=== PATIENT | male | born 1945 | race Asian ===

== ENCOUNTER 2020-08-10 08:11 | Outpatient (CLI) | payer MEDICARE, OTHER | END 2020-08-10 08:12 | disposition home or self-care (01) | LOC: EMS 08:11 | PROVIDERS: ATTEND Surgery | DX: R06.02 Shortness of breath (principal); R42 Dizziness and giddiness; R53.1 Weakness ==

== ENCOUNTER 2020-08-10 16:44 | Outpatient (CLI) | payer MEDICARE, OTHER | END 2020-08-10 16:45 | disposition critical access hospital (66) | LOC: EMS 16:44 | PROVIDERS: ATTEND Surgery | DX: R06.02 Shortness of breath (principal); R53.1 Weakness | CPT/HCPCS: A0425; A0429 ==

== ENCOUNTER 2020-08-10 17:06 | Inpatient (IN) | payer MEDICARE, OTHER ==
[2020-08-10 17:57] LABS: BASOPHILS % (AUTO) 0.3 %; EOSINOPHILS # (AUTO) 0.1 10^3/uL (0.0-0.7); EOSINOPHILS % (AUTO) 0.4 %; HGB - HEMOGLOBIN 12.8 g/dL (14.0-18.0); LYMPHOCYTES # (AUTO) 0.7 10^3/uL (1.5-3.5); LYMPHOCYTES % (AUTO) 6.3 %; MEAN CORPUSCULAR HEMOGLOBIN 28.8 pg (27.0-31.0); MEAN CORPUSCULAR HGB CONC 32.3 g/dL (32.0-36.0); MEAN CORPUSCULAR VOLUME 89.2 fL (80.0-94.0); MEAN PLATELET VOLUME 10.9 fL (7.4-11.4); MONOCYTES % (AUTO) 8.4 %; NEUTROPHILS # (AUTO) 9.6 10^3/uL (1.5-6.6); NEUTROPHILS % (AUTO) 84.1 %; PLT - PLATELET COUNT 188 10^3/uL (130-450); RED BLOOD COUNT 4.44 10^6/uL (4.70-6.10); RED CELL DISTRIBUTION WIDTH 13.1 % (12.0-15.0); WHITE BLOOD COUNT 11.5 x10^3/uL (4.8-10.8)
--- NOTE | 2020-08-10 18:03 | XRAY Report ---
PROCEDURE: Chest 1 View X-Ray INDICATIONS: chest pain TECHNIQUE: One view of the chest was acquired. COMPARISON: None. FINDINGS: Surgical changes and devices: None. Lungs and pleura: No pleural effusions or pneumothorax. Extensive hazy opacities scattered throughou t bilateral lung damon with interstitial prominence is seen. Mediastinum: Mediastinal contours appear normal. Heart size is enlarged. Bones and chest wall: No suspicious bony lesions. Overlying soft tissues appear unremarkable. IMPRESSION: Extensive interstitial prominence and ill-defined extensive bilateral airspace opacities suggestive o f pulmonary edema and superimposed interstitial infiltrates. No pleural effusion or pneumothorax. Reviewed by: Rom Man MD on 08/10/2020 5:01 PM [facility] Approved by: Rom Man MD on 08/10/2020 5:01 PM [facility] Station ID: [id number]
[2020-08-10 18:15] LABS: ALBUMIN 4.2 g/dL (3.2-5.5); ALBUMIN/GLOBULIN RATIO 1.2 (1.0-2.2); BILIRUBIN,TOTAL 0.9 mg/dL (0.2-1.0); CALCIUM 9.2 mg/dL (8.5-10.3); CREATININE 1.1 mg/dL (0.6-1.2); TOTAL PROTEIN 7.8 g/dL (6.7-8.2)
[2020-08-10 18:27] LABS: INR 1.2 (0.8-1.2); PT - PROTHROMBIN TIME 13.7 secs (9.9-12.6)
--- NOTE | 2020-08-10 18:40 | ED Physician Documentation ---
History of Present Illness - Stated complaint Stated Complaint: SOA - Chief complaint Chief Complaint: Resp - History obtained from History obtained from: Patient - Additonal information Additional information: Patient comes emergency department complaining of shortness of breath that has been getting increasingly worse over the approximately month. Patient has a history of chronic pulmonary fibrosis secondary to his rheumatoid arthritis, and states that he was just diagnosed with the pulmonary fibrosis about a year and a half ago. He states his oxygen baseline was initially set at 2 L per nasal cannula, but that he has been needing increasingly more, especially after exertion. Patient denies any fevers or chills. No productive cough. No chest pain. The patient does not have any cardiac issues that he knows of. He states he is mainly here because he called his oxygen provider, who stated that he could not be given a higher level of oxygen without a prescription or order. Patient was supposed to have an appointment with his hogshead packer tomorrow, but states that he was not feeling as though he would be well enough to make it, so he canceled the appointment. The patient states that he has been using 5 L when he uses his concentrator, which is the highest his concentrator will go. He states that he turns his oxygen tanks up to 6 L if he needs more. He states he does have enough oxygen at home to get through part of the night, and does have an nurse in his neighborhood who works for the oxygen company and has extra bottles in her possession which she can bring him. He states that he needs a prescription for the higher level of oxygen, however. No other complaints at this time. No lower extremity edema or calf pain. Review of Systems Ten Systems: 10 systems reviewed and negative Constitutional: reports: Reviewed and negative Eyes: reports: Reviewed and negative Ears: reports: Reviewed and negative Nose: reports: Reviewed and negative Throat: reports: Reviewed and negative Cardiac: reports: Reviewed and negative Respiratory: reports: Dyspnea GI: reports: Reviewed and negative : reports: Reviewed and negative Skin: reports: Reviewed and negative Musculoskeletal: reports: Reviewed and negative Neurologic: reports: Reviewed and negative Psychiatric: reports: Reviewed and negative Endocrine: reports: Reviewed and negative Immunocompromised: reports: Reviewed and negative PD PAST MEDICAL HISTORY - Present Medications Home Medications: Ambulatory Orders Medication Instructions Recorded Confirmed Cellcept 08/10/20 Cholecalciferol [Vitamin D3] 1,000 unit DAILY 08/10/20 08/10/20 Guaifenesin/Dextromethorphan 1 each PO BID 08/10/20 08/10/20 [Guaifenesin-Dm ER 1,200-60 mg] Multivitamin 1 tab DAILY 08/10/20 08/10/20 Omeprazole Magnesium 20 mg PO TID 08/10/20 08/10/20 Sulfamethox/Trimeth 800/160 1 tab TID 08/10/20 08/10/20 [Bactrim Ds] - Allergies Allergies/Adverse Reactions: Allergies Allergy/AdvReac Type Severity Reaction Status Date / Time No Known Drug Allergies Allergy Verified 08/10/20 17:40 PD ED PE NORMAL - Vitals Vital signs reviewed: Yes - General General: Alert and oriented X 3, No acute distress - HEENT HEENT: Atraumatic, PERRL, EOMI, Moist mucous membranes - Neck Neck: Supple, no meningeal sign - Cardiac Cardiac: RRR, No murmur - Respiratory Respiratory: Clear bilaterally, Other (Patient has mildly labored respirations, but is able to converse with minimal difficulty. He is noted to have include creased labored respirations with minor exertion, such as sitting up in bed.) - Abdomen Abdomen: Soft, Non tender, Non distended - Derm Derm: Normal color, Warm and dry, No rash - Extremities Extremities: No deformity, No edema, No calf tenderness / cord - Neuro Neuro: Alert and oriented X 3, Other (Sling normal) - Psych Psych: Normal mood, Normal affect Results - Vitals Vitals: Vital Signs - 24 hr 08/10/20 17:08 Temperature 36.5 C Heart Rate 85 Respiratory 26 H Rate Blood Pressure 126/71 O2 Saturation 88 L Oxygen O2 Source Nasal cannula Oxygen Flow Rate 5 - EKG (time done) 1755 Rate: Rate (enter#) (84) Rhythm: NSR, LAE [place]: Normal Intervals: Normal TX QRS: Normal Ischemia: ST elevation c/w repol Compare to prior EKG: Old EKG unavailable Computer interpretation: Agree with computer - Labs Labs: Laboratory Tests 08/10/20 08/10/20 08/10/20 17:52 17:52 17:52 WBC 11.5 H RBC 4.44 L Hgb 12.8 L Hct 39.6 L MCV 89.2 MCH 28.8 MCHC 32.3 RDW 13.1 Plt Count 188 MPV 10.9 Neut # (Auto) 9.6 H Lymph # (Auto) 0.7 L [place] # (Auto) 1.0 Eos # (Auto) 0.1 Baso # (Auto) 0.0 Absolute Nucleated RBC 0.00 Nucleated RBC % 0.0 PT 13.7 H INR 1.2 Sodium 140 Potassium 4.2 Chloride 103 Carbon Dioxide 27 Anion Gap 10.0 BUN 13 Creatinine 1.1 Estimated GFR (MDRD) 66 L Glucose 116 H Calcium 9.2 Total Bilirubin 0.9 AST 27 ALT 17 Alkaline Phosphatase 75 Troponin I High Sens B-Natriuretic Peptide Total Protein 7.8 Albumin 4.2 Globulin 3.6 Albumin/Globulin Ratio 1.2 Lipase 19 L 08/10/20 08/10/20 17:52 17:52 WBC RBC Hgb Hct MCV MCH MCHC RDW Plt Count MPV Neut # (Auto) Lymph # (Auto) [place] # (Auto) Eos # (Auto) Baso # (Auto) Absolute Nucleated RBC Nucleated RBC % PT INR Sodium Potassium Chloride Carbon Dioxide Anion Gap BUN Creatinine Estimated GFR (MDRD) Glucose Calcium Total Bilirubin AST ALT Alkaline Phosphatase Troponin I High Sens 28.8 H* B-Natriuretic Peptide 219 H Total Protein Albumin Globulin Albumin/Globulin Ratio Lipase PD MEDICAL DECISION MAKING - ED course Complexity details: reviewed results, re-evaluated patient, considered differential, d/w patient ED course: The patient was evaluated in the emergency department with chest x-ray, EKG, and labs. The chest x-ray was read by the radiologist as showing pulmonary edema, though there is no comparison for this in our system. The patient did not have cardiomegaly and I suspected the findings were most likely and more likely due to his pulmonary fibrosis. The patient did not have any lower extremity edema, but clear lungs on exam. I did add a BNP to further evaluate this possibility, however. In the meantime, I asked the respiratory therapist to do a desaturation study on the patient. I have explained to the patient that changing a chronic oxygen order is not generally something we do in the department; however, this seems to have been a gradual development for the patient as far as needing more oxygen, and he does not have any other acute symptoms or findings. The patient overall, other than his breathing, actually appears fairly well. The patient's initial troponin was 28.8. His BNP was just over 200. The patient has been signed out to Dr. Pike, pending repeat troponin and final disposition.
--- NOTE | 2020-08-10 20:24 | ED Physician Documentation ---
ED Addendum - Addendum Addendum: 08/10/20 20:23 74 y/o male 08/10/20 20:42 74-year-old male with a history of rheumatoid related pulmonary fibrosis has a progressive lung disease and is oxygen dependent and has had episodic desaturations that are difficult to recover from. He has had increase his baseline oxygen sequentially since the middle of June. In June he had an episode of desaturation the took him all day to recover from and he had some episode of hypoxic encephalopathy. He was able to adjust the oxygen upward to improve his saturations. He has an oxygen concentrator at home and will deliver up to 5 L and he has oxygen bottles as well that may last several hours. This morning he went to go to the bathroom on arrival back into his bed he was not able to get his saturations up he had a near syncopal episode and he works from 9:00 in the morning till 4:00 in the afternoon attempting to get his oxygen saturations up. He eventually called the oxygen company who told him that he would need a new prescription for his oxygen to get more than the 5 L on the concentrator and he was told to come to the emergency department for evaluation and treatment. The patient himself states that he has not had a change in his breathing other than progressive worsening. Here in the emergency department today he is saturating in the low 90s on 5 L nasal cannula excessive talking or moving will cause desaturation and he will take some time to recover. We did do a desaturation evaluation with respiratory therapy and the patient failed miserably. We will not be able to get an oxygen concentrator to the patient's house tonight that we will be able to deliver the amount of oxygen the patient will require.I have asked the hospitalist to put the patient into the hospital this evening until we are able to establish that he has the concentrator at his home functioning. 08/10/20 20:46
[2020-08-10] MEDS ORDERED: MORPHINE 2 MG/ML CARPUJECT IVP PRN (20:56)
[2020-08-10] MEDS ORDERED: SODIUM CHLORIDE FLUSH 0.9% 10 ML SYRINGE IVP PRN (20:56)
[2020-08-10] MEDS ORDERED: ACETAMINOPHEN 325 MG TABLET PO PRN (20:56)
--- NOTE | 2020-08-10 20:59 | HISTORY & PHYSICAL EXAMINATION ---
Chief Complaint - Chief Complaint Chief Complaint: Hypoxia History of Present Illness - Admitted From Admitted From:: Home - History Obtained From Records Reviewed: Yes History obtained from: Patient, ER Physician, EMR - History of Present Illness HPI Comment/Other: This is a very pleasant 74-year-old male with a past medical history significant for pulmonary fibrosis believed to be secondary to rheumatoid arthritis who is on 4-5 L of oxygen at baseline presents today due to ongoing hypoxia at home. He states that he has had progressive dyspnea with minimal exertion over the past 4 weeks. He has a chronic productive cough of brown sputum which is unchanged. He states that with minimal exertion he will desaturate into the 70s and it will normally take him about 15 minutes to return to 88 to 92%. He states that today he desaturated into the high 50s and despite increasing his oxygen to 7 8 L, he remained quite hypoxic over next few hours. He states he was finally able to decrease his oxygen to 6 L of oxygen to maintain a saturation above 88%. He states his concentrator only goes up to 5 L of oxygen and when he contacted the company that provides his oxygen, he was told that he will need a new prescription and so he came to the emergency department. He reports no fevers or chills at home. Denies any lower extremity edema. He states he does not feel short of breath at rest but he does with minimal exertion. He states his he has felt for the past 4 weeks. He understands that there is progressive decline associated pulmonary fibrosis. He is actually scheduled to see his pack worker, Dr. Renetta Weber tomorrow at [facility]. He denies ever being hospitalized due to pulmonary fibrosis. He does take Bactrim 3 times a week as he is on CellCept for the rheumatoid arthritis. He is also on omeprazole. He reports no chest pressure while he does have some pain when he has a coughing fit and dry heaves. In the emergency department, he was found to be afebrile with temperature of 36.5 C. His heart rate was in the 80s. Blood pressure is 150s over 71. He was tachypneic with a respiratory in the mid 20s to 30. He was initially saturating mid 90s on 5 L of oxygen via nasal cannula but he desaturated and re quired to be placed on a nonrebreather at 15 L a minute. His oxygen saturation did improve to 100% with this. Chest x-ray was obtained which was concerning for either pulmonary edema or bilateral infiltrates. Given his desaturation, medicine was consulted for admission. I did discuss goals of care with the patient and he would like to be a DNR. He has made it very clear that he does not want mechanical ventilation no matter what. He states that if he were to decline from a respiratory standpoint, he would option for comfort measures. History - Past Medical History Respiratory: reports: Other (Pulmonary fibrosis) Musculoskeletal: reports: Rheumatoid arthritis - Past Surgical History General: reports: Colonoscopy - Family & Social History Family History Comment/Other: Reports his father had pernicious anemia. His y ounger brother from complications due to type 2 diabetes mellitus. Living arrangement: At home Living Situation: With spouse/s.o. 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 He is to [employer]. He has never smoked. Meds/Allgy - Home Medications Home Medications: Ambulatory Orders Medication Instructions Recorded Confirmed Cellcept 08/10/20 Cholecalciferol [Vitamin D3] 1,000 unit DAILY 08/10/20 08/10/20 Guaifenesin/Dextromethorphan 1 each PO BID 08/10/20 08/10/20 [Guaifenesin-Dm ER 1,200-60 mg] Multivitamin 1 tab DAILY 08/10/20 08/10/20 Omeprazole Magnesium 20 mg PO TID 08/10/20 08/10/20 Sulfamethox/Trimeth 800/160 1 tab TID 08/10/20 08/10/20 [Bactrim Ds] - Allergies Allergies/Adverse Reactions: Allergies Allergy/AdvReac Type Severity Reaction Status Date / Time No Known Drug Allergies Allergy Verified 08/10/20 17:40 Review of Systems - Constitutional Constitutional: denies: Fatigue, Fever, Chills - Ears, Nose & Throat Ears, Nose & Throat: denies: Nasal discharge, Nasal congestion, Sore throat - Cardiovascular Cariovascular: reports: Exertional dyspnea, Decr. exercise tolerance. denies: Chest pain, Edema - Respiratory Respiratory: reports: Cough, Sputum production, SOB at rest, SOB with exertion - Gastrointestinal Gastrointestinal: denies: Abdominal pain - All Other Systems All Other Systems: reports: Other (Review of systems is limited due to his respiratory distress.) Prior Level of Functionality: He is independent with his ADLs. His physical abilities are limited due to dyspnea with exertion secondary to his pulmonary fibrosis. Exam - Vital Signs Reviewed Vital Signs: Yes Vital Signs: Vital Signs x48h Temp Pulse Resp BP Pulse Ox 08/10/20 20:47 28 H 100 08/10/20 20:22 91 19 115/69 86 L 08/10/20 20:15 35 H 83 L 08/10/20 19:47 74 22 113/64 95 08/10/20 19:10 70 30 H 109/65 97 08/10/20 18:00 73 26 H 112/64 94 08/10/20 17:08 36.5 C 85 26 H 126/71 88 L - Physical Exam General Appearance: positive: Alert, Moderate distress Eyes Bilateral: positive: Normal inspection, Conjunctivae nml, No scleral icterus ENT: positive: ENT inspection nml Neck: positive: Nml inspection Respiratory: positive: Other (He does appear to be distressed whenever he is speaking. He speaks in 2-3 word sentences at a time. He appears much more comfortable once he is not speaking. He has bilateral crackles throughout lung damon.). negative: No respiratory distress, Wheezes Cardiovascular: positive: No murmur, Tachycardia. negative: Bradycardia, Systolic murmur Abdomen: positive: Non-tender, No distention. negative: Tenderness Skin: positive: Warm, Dry Extremities: positive: No pedal edema Neurologic/Psychiatric: positive: Oriented x3. negative: Disoriented to person, Disoriented to place, Disoriented to time Conclusion/Plan - Problem List (1) Acute on chronic respiratory failure with hypoxia Conclusion/Plan: He is normally on 4 to 5 L of oxygen at baseline due to his pulmonary fibrosis but he is now requiring up to 10 L of oxygen to maintain an oxygen saturation above 88%. His x-ray does reveal bilateral infiltrates concerning for edema or possible pneumonia. There is no prior imaging to compare to so it is unclear if this is just related to his pulmonary fibrosis or not. Given his worsening hypoxia, we will treat him empirically with IV azithromycin and ceftriaxone for possible community-acquired pneumonia. We will also give him a one-time dose of Solu-Medrol 125 mg IV in case there may be a component of exacerbation of his pulmonary fibrosis. We will place him in the intensive care unit for close monitoring given his significant hypoxia and respiratory distress at times. Continue supplemental oxygen for goal saturation greater than 88%. I have requested records from [facility] and we will consider obtaining further imaging such as a CT of the chest. Will discuss with pack worker tomorrow regarding the need for further steroids and further treatment. The patient has made it very clear he would not want mechanical ventilation even if he were to deteriorate. (2) Pulmonary interstitial fibrosis Conclusion/Plan: IIt is unclear at this time if this episode of hypoxia is due to a possible infiltrate or heart failure or even exacerbation of his pulmonary fibrosis. This may just be chronic progressive hypoxia due to his underlying disease. His chest x-ray is quite abnormal although we do not have prior imaging to compare to. At this time, we will treat him medically as mentioned above. We will request his records from [facility] so we can compare his current chest x-ray to prior imaging as if there is a significant difference, he may need further work-up including a CT of the chest. If imaging is unchanged, suspect is likely just progression of his disease and that he will require an increased amount of oxygen. (3) Rheumatoid arthritis Conclusion/Plan: This is reportedly the cause of his pulmonary fibrosis. We will hold his home CellCept for the time being. - Lab Results Lab results reviewed: Yes Fish Bones: 08/10/20 17:52 08/10/20 17:52 - Diagnostic Imaging Results Diagnostic Imaging Results: positive: Final report reviewed - EKG Results EKG Interpreted Independently: Yes EKG Comparison: No prior EKG EKG Findings: Sinus rhythm with T wave inversions in the inferior leads and flattening of T waves in the lateral leads. Core Measures - Anticipated LOS I expect patient to be DC'd or transferred within 96 hours.: Yes - Issues Hospital Issues and Management Plan: 74-year-old male with history of pulmonary fibrosis presents with hypoxia and dyspnea with minimal exertion. He will be admitted for acute on chronic respiratory failure with hypoxia possibly due to community-acquired pneumonia or exacerbation of his pulmonary fibrosis. He will be placed in intensive care unit for IV antibiotics and steroids. - DVT/VTE - Prophylaxis VTE/DVT Device ordered at admit?: Yes VTE/DVT Prophylaxis med ordered at admit?: Yes
[2020-08-10 21:50] LABS: C. PNEUMONIAE- RESP PCR PANEL NOT DETECTED
[2020-08-10] MEDS ORDERED: AZITHROMYCIN INJ 500 MG in SODIUM CHLORIDE 0.9% 250 ML IV SCH (22:29)
[2020-08-10] MEDS ORDERED: cefTRIAXone 2 GM in SODIUM CHLORIDE 0.9% MINIBAG 100 ML IV SCH (22:29)
[2020-08-10] MEDS ORDERED: methylPREDNISolone SUCCINATE 125 MG/2 ML VIAL IVP STA (22:33)
--- NOTE | 2020-08-10 22:45 | ADVANCE CARE PLANNING NOTE ---
Advance Care Planning - Planning Encounter Date: 08/10/20 Time: 22:20 Purpose: To clarify goals of care. Parties in Attendance: The patient, myself, and his nurse. Decisional Capacity of the Patient: He has ability to make his own medical decisions. - Diagnosis for Encounter (1) Pulmonary interstitial fibrosis Summary: He has been diagnosed with this for approximately 2 years now. This is believed to be secondary to rheumatoid arthritis. He is now admitted for acute on chronic hypoxic respiratory failure secondary to possible community-acquired pneumonia and exacerbation of his pulmonary fibrosis. He is in the ICU due to his increased oxygen requirements. He is on IV antibiotics and steroids. 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 He is to [employer]. He has never smoked. He has had progressive dyspnea which has limited his physical abilities due to pulmonary fibrosis. He now becomes dyspneic with minimal exertion. Objective/Medical Story: He was diagnosed with pulmonary fibrosis back in September 2018. This was his initial manifestation of rheumatoid arthritis and was diagnosed after years of dyspnea. He states his dyspnea has progressed over the past couple of years he is now on 4-1/2 L of oxygen. He is followed by pulmonology at [facility]. He is now seeing Dr. Renetta Weber and was scheduled to see her tomorrow. He now presents due to persistent hypoxia after exertion and concern is for possible pneumonia and exacerbation of his pulmonary fibrosis. He is admitted for IV antibiotics and steroids. Goals of Care: The patient has made it very clear that he does not want mechanical ventilation or CPR. He understands the natural progression of pulmonary fibrosis. He states that if he were to decline from a respiratory standpoint despite all medical interventions, he would prefer to focus on his comfort. He states his is aware of his wishes as well. In the meantime, he is agreeable to continuing with all medical therapies except for mechanical ventilation. Plan: The patient will be made a DNR with no mechanical ventilation as per his request. We will continue to treat him with IV antibiotics and steroids. We will contact his keying machine operator to discuss further management. We will discuss palliative care consult tomorrow with the patient. Code Status: Do Not Attempt Resuscitation Time spent on advance care plannin
[2020-08-10] MEDS ORDERED: BENZONATATE 100 MG CAPSULE PO PRN (22:55)
[2020-08-10] MEDS: SODIUM CHLORIDE FLUSH 0.9% 10 ML SYRINGE IVP SCH (23:28)
[2020-08-10] MEDS: guaiFENesin 600 MG TABLET PO SCH (23:38)
[2020-08-11] MEDS ORDERED: guaiFENesin/CODEINE 5 ML UDC PO PRN (00:50)
[2020-08-11] MEDS: MORPHINE 2 MG/ML CARPUJECT IVP PRN ×11 (00:56→22:01)
[2020-08-11 04:27] LABS: BASOPHILS % (AUTO) 0.2 %; HGB - HEMOGLOBIN 12.9 g/dL (14.0-18.0); LYMPHOCYTES # (AUTO) 0.4 10^3/uL (1.5-3.5); LYMPHOCYTES % (AUTO) 2.5 %; MEAN CORPUSCULAR HEMOGLOBIN 28.4 pg (27.0-31.0); MEAN CORPUSCULAR VOLUME 88.8 fL (80.0-94.0); MEAN PLATELET VOLUME 11.3 fL (7.4-11.4); MONOCYTES # (AUTO) 0.3 10^3/uL (0.0-1.0); MONOCYTES % (AUTO) 2.1 %; NEUTROPHILS # (AUTO) 14.1 10^3/uL (1.5-6.6); NEUTROPHILS % (AUTO) 94.7 %; PLT - PLATELET COUNT 178 10^3/uL (130-450); RED BLOOD COUNT 4.54 10^6/uL (4.70-6.10); RED CELL DISTRIBUTION WIDTH 13.1 % (12.0-15.0); WHITE BLOOD COUNT 14.9 x10^3/uL (4.8-10.8)
[2020-08-11 04:30] LABS: VBG PH 7.399 (7.31-7.41)
[2020-08-11 04:36] LABS: CALCIUM 9.2 mg/dL (8.5-10.3); CREATININE 0.9 mg/dL (0.6-1.2)
[2020-08-11 04:39] LABS: MAGNESIUM 2.2 mg/dL (1.7-2.8); PHOSPHORUS 2.6 mg/dL (2.5-4.6)
[2020-08-11] MEDS: IPRATROPIUM/ALBUTEROL 3 ML NEB INH PRN ×2 (07:45→19:58)
[2020-08-11] MEDS: CHOLECALCIFEROL 25 MCG TABLET PO SCH (08:19)
[2020-08-11] MEDS: guaiFENesin 600 MG TABLET PO SCH ×2 (08:20→20:11)
[2020-08-11] MEDS: MULTIVITAMIN TABLET PO SCH (08:21)
[2020-08-11] MEDS: PANTOPRAZOLE 40 MG TABLET PO SCH ×2 (08:21→20:11)
[2020-08-11] MEDS: guaiFENesin/DEXTROMETHORPHAN 10 ML UDC PO SCH ×2 (08:21→20:11)
[2020-08-11] MEDS: ENOXAPARIN 40 MG/0.4 ML SYRINGE SUBQ SCH (08:26)
[2020-08-11] MEDS: SODIUM CHLORIDE FLUSH 0.9% 10 ML SYRINGE IVP SCH ×2 (08:26→17:00)
[2020-08-11 10:35] LABS: ABG BASE EXCESS -1.6 mmol/L (-2.0-3.0); ABG HCO3 23.8 mmol/L (22.0-26.0); ABG PCO2 43 mmHg (34-45); ABG PH 7.37 (7.35-7.45); ABG PO2 56 mmHg (80-100); ABG TCO2 25.1 MMOL/L (21.0-29.0)
[2020-08-11 10:36] LABS: ALLEN TEST POSITIVE
[2020-08-11 10:40] LABS: ABG OXYGEN SATURATION 87 % (94-98)
--- NOTE | 2020-08-11 10:59 | PHARMACY PROGRESS NOTE ---
- Best Possible Medication History Admit Date and Time: 08/10/20 2238 Processed by: Pharmacy Medication History completed: Yes Patient Interview: Completed Secondary Source(s): Pharmacy records, Insurance records As the person ultimately responsible for medication therapy, providers are able to order a medication from an existing home medication list in [facility] via the "Reconcile Routine" prior to Confirmation of that medication by marketing support coordinator. Such practice is discouraged except when the physician, in their clinical judgment, deems that a medical need exists for a medication without regard to previous use.
[2020-08-11] MEDS ORDERED: PIPERACILLIN/TAZOBACTAM 3.375 GM in SODIUM CHLORIDE 0.9% MINIBAG 100 ML IV ONE (13:00)
--- NOTE | 2020-08-11 13:04 | PROVIDER PROGRESS NOTE ---
Subjective - Prog Note Date Prog Note Date: 08/11/20 Prog Note Time: 12:57 - Subjective Pt reports feeling: Worse Subjective: Severely short of breath. Coughing. Any movement desaturates him to sats in the mid 70s to high 70s. Current Medications - Current Medications Current Medications: Active Medications Acetaminophen (Acetaminophen 325 Mg Tablet) 650 mg PO Q4HR PRN PRN Reason: Pain 1 to 4 Last Admin: 08/11/20 00:46 Dose: 650 mg Documented by: Albuterol/Ipratropium (Ipratropium/Albuterol 3 Ml Neb) 3 ml INH Q4HR PRN PRN Reason: Wheezing Benzonatate (Benzonatate 100 Mg Capsule) 100 mg PO TID PRN PRN Reason: Cough Last Admin: 08/11/20 00:47 Dose: 100 mg Documented by: Cholecalciferol (Cholecalciferol 25 Mcg Tablet) 25 mcg PO DAILY [facility] Last Admin: 08/11/20 08:19 Dose: 25 mcg Documented by: Enoxaparin Sodium (Enoxaparin 40 Mg/0.4 Ml Syringe) 40 mg SUBQ DAILY [facility] Last Admin: 08/11/20 08:26 Dose: 40 mg Documented by: Guaifenesin (Guaifenesin/Dextromethorphan 10 Ml Udc) 10 ml PO BID [facility] Last Admin: 08/11/20 08:21 Dose: 10 ml Documented by: Guaifenesin (Guaifenesin 600 Mg Tablet) 600 mg PO BID [facility] Last Admin: 08/11/20 08:20 Dose: 600 mg Documented by: Guaifenesin/Codeine Phosphate (Guaifenesin/Codeine 5 Ml Udc) 5 ml PO Q6HR PRN PRN Reason: Cough Last Admin: 08/11/20 06:28 Dose: 5 ml Documented by: Azithromycin 500 mg/ Sodium (Chloride) 250 mls @ 250 mls/hr IV 2200 [facility] Stop: 08/12/20 22:59 Piperacillin Sod/Tazobactam (Sod 3.375 gm/ Sodium Chloride) 100 mls @ 200 mls/hr IV Q6H FRANCINE Morphine Sulfate (Morphine 2 Mg/Ml Carpuject) 1 mg IVP Q2HR PRN PRN Reason: Dyspnea Last Admin: 08/11/20 12:30 Dose: 1 mg Documented by: Multivitamins (Multivitamin Tablet) 1 tab PO DAILY [facility] Last Admin: 08/11/20 08:21 Dose: 1 tab Documented by: Pantoprazole Sodium (Pantoprazole 40 Mg Tablet) 40 mg PO BID [facility] Last Admin: 08/11/20 08:21 Dose: 40 mg Documented by: Sodium Chloride (Sodium Chloride Flush 0.9% 10 Ml Syringe) 10 ml IVP PRN PRN PRN Reason: NEEDED PER PROVIDER ORDERS Sodium Chloride (Sodium Chloride Flush 0.9% 10 Ml Syringe) 10 ml IVP 0100,0900,1700 [facility] Last Admin: 08/11/20 08:26 Dose: 10 ml Documented by: Omeprazole Magnesium 20 mg PO DAILY 08/10/20 Sulfamethox/Trimeth 800/160 [Bactrim Ds] 1 tab PO MOWEFR 08/10/20 Mycophenolate Mofetil 1,000 mg PO BID 08/11/20 Objective - Vital Signs/Intake & Output Reviewed Vital Signs: Yes Vital Signs: Vital Signs Temp Pulse Pulse Resp BP Pulse Ox 08/11/20 12:35 72 08/11/20 12:00 36.3 C L 79 32 H 121/76 90 L 08/11/20 11:00 74 30 H 123/73 94 08/11/20 10:31 65 08/11/20 10:27 68 08/11/20 10:00 88 25 H 134/74 H 91 L 08/11/20 09:06 77 08/11/20 09:00 79 30 H 136/77 H 93 Intake & Output: Intake & Output 08/08/20 08/09/20 08/10/20 08/11/20 23:59 23:59 23:59 23:59 Intake Total 720 Output Total 727 Balance -7 - Objective General Appearance: positive: Moderate distress Eyes Bilateral: positive: PERRL, EOMI ENT: positive: No signs of dehydration Neck: positive: No JVD. negative: Stiff neck Respiratory: positive: Rales, Other (Tachypnea with speaking. Coughing. Pleasant man. Does like to talk to people and he desaturates drastically when he does so and it takes 15 minutes for him to recover.) Cardiovascular: positive: Regular rate & rhythm, Systolic murmur. negative: Gallop/S4 Abdomen: positive: Non-tender, No organomegaly, Nml bowel sounds, No distention Skin: positive: Warm, Dry Extremities: positive: Full ROM, No pedal edema Neurologic/Psychiatric: positive: Oriented x3, CN's nml (2-12), Motor nml - Lab Results Fish Bones: 08/11/20 04:00 08/11/20 04:00 Other Labs: Lab Results x24hrs 08/11/20 08/11/20 08/11/20 Range/Units 10:03 04:00 04:00 WBC (4.8-10.8) x10^3/uL RBC (4.70-6.10) 10^6/uL Hgb (14.0-18.0) g/dL Hct (42.0-52.0) % MCV (80.0-94.0) fL MCH (27.0-31.0) pg MCHC (32.0-36.0) g/dL RDW (12.0-15.0) % Plt Count (130-450) 10^3/uL MPV (7.4-11.4) fL Neut # (Auto) (1.5-6.6) 10^3/uL Lymph # (Auto) (1.5-3.5) 10^3/uL Cottle # (Auto) (0.0-1.0) 10^3/uL Eos # (Auto) (0.0-0.7) 10^3/uL Baso # (Auto) (0.0-0.1) 10^3/uL Absolute Nucleated RBC x10^3/uL Nucleated RBC % /100WBC PT (9.9-12.6) secs INR (0.8-1.2) Bld Gas Analysis Time 1004 Sample Site RIGHT RADIAL ABG pH 7.37 (7.35-7.45) ABG pCO2 43 (34-45) mmHg ABG pO2 56 L (80-100) mmHg ABG HCO3 23.8 (22.0-26.0) mmol/L ABG Total CO2 25.1 (21.0-29.0) MMOL/L ABG O2 Saturation 87 L* (94-98) % ABG Oximetry Spot Check 92 % ABG Base Excess -1.6 (-2.0-3.0) mmol/L Tye Test POSITIVE VBG pH 7.399 (7.31-7.41) Ionized Calcium 1.14 L (1.15-1.33) mmol/L Respiration Rate 33 b/min O2 Delivery Device BiPAP Vent Mode SYNCHRONOUS/TIMES FiO2 50.00 Tidal Volume 871 mL Pressure Support Vent 4 cmH2O EPAP 6 cmH2O IPAP 10 cmH2O Sodium (135-145) mmol/L Potassium (3.5-5.0) mmol/L Chloride (101-111) mmol/L Carbon Dioxide (21-32) mmol/L Anion Gap (6-13) BUN (6-20) mg/dL Creatinine (0.6-1.2) mg/dL Estimated GFR (MDRD) (>89) Glucose (70-100) mg/dL Calcium (8.5-10.3) mg/dL Phosphorus 2.6 (2.5-4.6) mg/dL Magnesium 2.2 (1.7-2.8) mg/dL Total Bilirubin (0.2-1.0) mg/dL AST (10-42) IU/L ALT (10-60) IU/L Alkaline Phosphatase (42-121) IU/L Troponin I High Sens (2.3-19.7) ng/L B-Natriuretic Peptide (5-100) pg/mL Total Protein (6.7-8.2) g/dL Albumin (3.2-5.5) g/dL Globulin (2.1-4.2) g/dL Albumin/Globulin Ratio (1.0-2.2) Lipase (22-51) U/L Nasal Adenovirus (PCR) Nasal B. parapertussis DNA (PCR) Nasal Coronavir 229E PCR Nasal Coronavir HKU1 PCR Nasal Coronavir NL63 PCR Nasal Coronavir OC43 PCR Nasal Enterovir/Rhinovir PCR Nasal Influenza B PCR Nasal Influenza A PCR Nasal Parainfluen 1 PCR Nasal Parainfluen 2 PCR Nasal Parainfluen 3 PCR Nasal Parainfluen 4 PCR Nasal RSV (PCR) Nasal Screen MRSA (PCR) (NEGATIVE) Nasal B.pertussis DNA PCR Nasal C.pneumoniae (PCR) Ye Human Metapneumo PCR Nasal M.pneumoniae (PCR) Nasal SARS-CoV-2 (PCR) 08/11/20 08/11/20 08/10/20 Range/Units 04:00 04:00 23:15 WBC 14.9 H (4.8-10.8) x10^3/uL RBC 4.54 L (4.70-6.10) 10^6/uL Hgb 12.9 L (14.0-18.0) g/dL Hct 40.3 L (42.0-52.0) % MCV 88.8 (80.0-94.0) fL MCH 28.4 (27.0-31.0) pg MCHC 32.0 (32.0-36.0) g/dL RDW 13.1 (12.0-15.0) % Plt Count 178 (130-450) 10^3/uL MPV 11.3 (7.4-11.4) fL Neut # (Auto) 14.1 H (1.5-6.6) 10^3/uL Lymph # (Auto) 0.4 L (1.5-3.5) 10^3/uL Cottle # (Auto) 0.3 (0.0-1.0) 10^3/uL Eos # (Auto) 0.0 (0.0-0.7) 10^3/uL Baso # (Auto) 0.0 (0.0-0.1) 10^3/uL Absolute Nucleated RBC 0.00 x10^3/uL Nucleated RBC % 0.0 /100WBC PT (9.9-12.6) secs INR (0.8-1.2) Bld Gas Analysis Time Sample Site ABG pH (7.35-7.45) ABG pCO2 (34-45) mmHg ABG pO2 (80-100) mmHg ABG HCO3 (22.0-26.0) mmol/L ABG Total CO2 (21.0-29.0) MMOL/L ABG O2 Saturation (94-98) % ABG Oximetry Spot Check % ABG Base Excess (-2.0-3.0) mmol/L Tye Test VBG pH (7.31-7.41) Ionized Calcium (1.15-1.33) mmol/L Respiration Rate b/min O2 Delivery Device Vent Mode FiO2 Tidal Volume mL Pressure Support Vent cmH2O EPAP cmH2O IPAP cmH2O Sodium 139 (135-145) mmol/L Potassium 4.2 (3.5-5.0) mmol/L Chloride 104 (101-111) mmol/L Carbon Dioxide 22 (21-32) mmol/L Anion Gap 13.0 (6-13) BUN 14 (6-20) mg/dL Creatinine 0.9 (0.6-1.2) mg/dL Estimated GFR (MDRD) 83 L (>89) Glucose 132 H (70-100) mg/dL Calcium 9.2 (8.5-10.3) mg/dL Phosphorus (2.5-4.6) mg/dL Magnesium (1.7-2.8) mg/dL Total Bilirubin (0.2-1.0) mg/dL AST (10-42) IU/L ALT (10-60) IU/L Alkaline Phosphatase (42-121) IU/L Troponin I High Sens (2.3-19.7) ng/L B-Natriuretic Peptide (5-100) pg/mL Total Protein (6.7-8.2) g/dL Albumin (3.2-5.5) g/dL Globulin (2.1-4.2) g/dL Albumin/Globulin Ratio (1.0-2.2) Lipase (22-51) U/L Nasal Adenovirus (PCR) Nasal B. parapertussis DNA (PCR) Nasal Coronavir 229E PCR Nasal Coronavir HKU1 PCR Nasal Coronavir NL63 PCR Nasal Coronavir OC43 PCR Nasal Enterovir/Rhinovir PCR Nasal Influenza B PCR Nasal Influenza A PCR Nasal Parainfluen 1 PCR Nasal Parainfluen 2 PCR Nasal Parainfluen 3 PCR Nasal Parainfluen 4 PCR Nasal RSV (PCR) Nasal Screen MRSA (PCR) NEGATIVE (NEGATIVE) Nasal B.pertussis DNA PCR Nasal C.pneumoniae (PCR) Ye Human Metapneumo PCR Nasal M.pneumoniae (PCR) Nasal SARS-CoV-2 (PCR) 08/10/20 08/10/20 08/10/20 Range/Units 20:53 19:22 17:52 WBC (4.8-10.8) x10^3/uL RBC (4.70-6.10) 10^6/uL Hgb (14.0-18.0) g/dL Hct (42.0-52.0) % MCV (80.0-94.0) fL MCH (27.0-31.0) pg MCHC (32.0-36.0) g/dL RDW (12.0-15.0) % Plt Count (130-450) 10^3/uL MPV (7.4-11.4) fL Neut # (Auto) (1.5-6.6) 10^3/uL Lymph # (Auto) (1.5-3.5) 10^3/uL Cottle # (Auto) (0.0-1.0) 10^3/uL Eos # (Auto) (0.0-0.7) 10^3/uL Baso # (Auto) (0.0-0.1) 10^3/uL Absolute Nucleated RBC x10^3/uL Nucleated RBC % /100WBC PT (9.9-12.6) secs INR (0.8-1.2) Bld Gas Analysis Time Sample Site ABG pH (7.35-7.45) ABG pCO2 (34-45) mmHg ABG pO2 (80-100) mmHg ABG HCO3 (22.0-26.0) mmol/L ABG Total CO2 (21.0-29.0) MMOL/L ABG O2 Saturation (94-98) % ABG Oximetry Spot Check % ABG Base Excess (-2.0-3.0) mmol/L Tye Test VBG pH (7.31-7.41) Ionized Calcium (1.15-1.33) mmol/L Respiration Rate b/min O2 Delivery Device Vent Mode FiO2 Tidal Volume mL Pressure Support Vent cmH2O EPAP cmH2O IPAP cmH2O Sodium (135-145) mmol/L Potassium (3.5-5.0) mmol/L Chloride (101-111) mmol/L Carbon Dioxide (21-32) mmol/L Anion Gap (6-13) BUN (6-20) mg/dL Creatinine (0.6-1.2) mg/dL Estimated GFR (MDRD) (>89) Glucose (70-100) mg/dL Calcium (8.5-10.3) mg/dL Phosphorus (2.5-4.6) mg/dL Magnesium (1.7-2.8) mg/dL Total Bilirubin (0.2-1.0) mg/dL AST (10-42) IU/L ALT (10-60) IU/L Alkaline Phosphatase (42-121) IU/L Troponin I High Sens 30.9 H* (2.3-19.7) ng/L B-Natriuretic Peptide 219 H (5-100) pg/mL Total Protein (6.7-8.2) g/dL Albumin (3.2-5.5) g/dL Globulin (2.1-4.2) g/dL Albumin/Globulin Ratio (1.0-2.2) Lipase (22-51) U/L Nasal Adenovirus (PCR) NOT DETECTED Nasal B. parapertussis DNA (PCR) NOT DETECTED Nasal Coronavir 229E PCR NOT DETECTED Nasal Coronavir HKU1 PCR NOT DETECTED Nasal Coronavir NL63 PCR NOT DETECTED Nasal Coronavir OC43 PCR NOT DETECTED Nasal Enterovir/Rhinovir PCR NOT DETECTED Nasal Influenza B PCR NOT DETECTED Nasal Influenza A PCR NOT DETECTED Nasal Parainfluen 1 PCR NOT DETECTED Nasal Parainfluen 2 PCR NOT DETECTED Nasal Parainfluen 3 PCR NOT DETECTED Nasal Parainfluen 4 PCR NOT DETECTED Nasal RSV (PCR) NOT DETECTED Nasal Screen MRSA (PCR) (NEGATIVE) Nasal B.pertussis DNA PCR NOT DETECTED Nasal C.pneumoniae (PCR) NOT DETECTED Ye Human Metapneumo PCR NOT DETECTED Nasal M.pneumoniae (PCR) NOT DETECTED Nasal SARS-CoV-2 (PCR) NOT DETECTED 08/10/20 08/10/20 08/10/20 Range/Units 17:52 17:52 17:52 WBC (4.8-10.8) x10^3/uL RBC (4.70-6.10) 10^6/uL Hgb (14.0-18.0) g/dL Hct (42.0-52.0) % MCV (80.0-94.0) fL MCH (27.0-31.0) pg MCHC (32.0-36.0) g/dL RDW (12.0-15.0) % Plt Count (130-450) 10^3/uL MPV (7.4-11.4) fL Neut # (Auto) (1.5-6.6) 10^3/uL Lymph # (Auto) (1.5-3.5) 10^3/uL Cottle # (Auto) (0.0-1.0) 10^3/uL Eos # (Auto) (0.0-0.7) 10^3/uL Baso # (Auto) (0.0-0.1) 10^3/uL Absolute Nucleated RBC x10^3/uL Nucleated RBC % /100WBC PT 13.7 H (9.9-12.6) secs INR 1.2 (0.8-1.2) Bld Gas Analysis Time Sample Site ABG pH (7.35-7.45) ABG pCO2 (34-45) mmHg ABG pO2 (80-100) mmHg ABG HCO3 (22.0-26.0) mmol/L ABG Total CO2 (21.0-29.0) MMOL/L ABG O2 Saturation (94-98) % ABG Oximetry Spot Check % ABG Base Excess (-2.0-3.0) mmol/L Tye Test VBG pH (7.31-7.41) Ionized Calcium (1.15-1.33) mmol/L Respiration Rate b/min O2 Delivery Device Vent Mode FiO2 Tidal Volume mL Pressure Support Vent cmH2O EPAP cmH2O IPAP cmH2O Sodium 140 (135-145) mmol/L Potassium 4.2 (3.5-5.0) mmol/L Chloride 103 (101-111) mmol/L Carbon Dioxide 27 (21-32) mmol/L Anion Gap 10.0 (6-13) BUN 13 (6-20) mg/dL Creatinine 1.1 (0.6-1.2) mg/dL Estimated GFR (MDRD) 66 L (>89) Glucose 116 H (70-100) mg/dL Calcium 9.2 (8.5-10.3) mg/dL Phosphorus (2.5-4.6) mg/dL Magnesium (1.7-2.8) mg/dL Total Bilirubin 0.9 (0.2-1.0) mg/dL AST 27 (10-42) IU/L ALT 17 (10-60) IU/L Alkaline Phosphatase 75 (42-121) IU/L Troponin I High Sens 28.8 H* (2.3-19.7) ng/L B-Natriuretic Peptide (5-100) pg/mL Total Protein 7.8 (6.7-8.2) g/dL Albumin 4.2 (3.2-5.5) g/dL Globulin 3.6 (2.1-4.2) g/dL Albumin/Globulin Ratio 1.2 (1.0-2.2) Lipase 19 L (22-51) U/L Nasal Adenovirus (PCR) Nasal B. parapertussis DNA (PCR) Nasal Coronavir 229E PCR Nasal Coronavir HKU1 PCR Nasal Coronavir NL63 PCR Nasal Coronavir OC43 PCR Nasal Enterovir/Rhinovir PCR Nasal Influenza B PCR Nasal Influenza A PCR Nasal Parainfluen 1 PCR Nasal Parainfluen 2 PCR Nasal Parainfluen 3 PCR Nasal Parainfluen 4 PCR Nasal RSV (PCR) Nasal Screen MRSA (PCR) (NEGATIVE) Nasal B.pertussis DNA PCR Nasal C.pneumoniae (PCR) Ye Human Metapneumo PCR Nasal M.pneumoniae (PCR) Nasal SARS-CoV-2 (PCR) 08/10/20 Range/Units 17:52 WBC 11.5 H (4.8-10.8) x10^3/uL RBC 4.44 L (4.70-6.10) 10^6/uL Hgb 12.8 L (14.0-18.0) g/dL Hct 39.6 L (42.0-52.0) % MCV 89.2 (80.0-94.0) fL MCH 28.8 (27.0-31.0) pg MCHC 32.3 (32.0-36.0) g/dL RDW 13.1 (12.0-15.0) % Plt Count 188 (130-450) 10^3/uL MPV 10.9 (7.4-11.4) fL Neut # (Auto) 9.6 H (1.5-6.6) 10^3/uL Lymph # (Auto) 0.7 L (1.5-3.5) 10^3/uL Cottle # (Auto) 1.0 (0.0-1.0) 10^3/uL Eos # (Auto) 0.1 (0.0-0.7) 10^3/uL Baso # (Auto) 0.0 (0.0-0.1) 10^3/uL Absolute Nucleated RBC 0.00 x10^3/uL Nucleated RBC % 0.0 /100WBC PT (9.9-12.6) secs INR (0.8-1.2) Bld Gas Analysis Time Sample Site ABG pH (7.35-7.45) ABG pCO2 (34-45) mmHg ABG pO2 (80-100) mmHg ABG HCO3 (22.0-26.0) mmol/L ABG Total CO2 (21.0-29.0) MMOL/L ABG O2 Saturation (94-98) % ABG Oximetry Spot Check % ABG Base Excess (-2.0-3.0) mmol/L Tye Test VBG pH (7.31-7.41) Ionized Calcium (1.15-1.33) mmol/L Respiration Rate b/min O2 Delivery Device Vent Mode FiO2 Tidal Volume mL Pressure Support Vent cmH2O EPAP cmH2O IPAP cmH2O Sodium (135-145) mmol/L Potassium (3.5-5.0) mmol/L Chloride (101-111) mmol/L Carbon Dioxide (21-32) mmol/L Anion Gap (6-13) BUN (6-20) mg/dL Creatinine (0.6-1.2) mg/dL Estimated GFR (MDRD) (>89) Glucose (70-100) mg/dL Calcium (8.5-10.3) mg/dL Phosphorus (2.5-4.6) mg/dL Magnesium (1.7-2.8) mg/dL Total Bilirubin (0.2-1.0) mg/dL AST (10-42) IU/L ALT (10-60) IU/L Alkaline Phosphatase (42-121) IU/L Troponin I High Sens (2.3-19.7) ng/L B-Natriuretic Peptide (5-100) pg/mL Total Protein (6.7-8.2) g/dL Albumin (3.2-5.5) g/dL Globulin (2.1-4.2) g/dL Albumin/Globulin Ratio (1.0-2.2) Lipase (22-51) U/L Nasal Adenovirus (PCR) Nasal B. parapertussis DNA (PCR) Nasal Coronavir 229E PCR Nasal Coronavir HKU1 PCR Nasal Coronavir NL63 PCR Nasal Coronavir OC43 PCR Nasal Enterovir/Rhinovir PCR Nasal Influenza B PCR Nasal Influenza A PCR Nasal Parainfluen 1 PCR Nasal Parainfluen 2 PCR Nasal Parainfluen 3 PCR Nasal Parainfluen 4 PCR Nasal RSV (PCR) Nasal Screen MRSA (PCR) (NEGATIVE) Nasal B.pertussis DNA PCR Nasal C.pneumoniae (PCR) Ye Human Metapneumo PCR Nasal M.pneumoniae (PCR) Nasal SARS-CoV-2 (PCR) Assessment/Plan - Problem List (1) Acute on chronic respiratory failure with hypoxia Impression: He is normally on 4 to 5 L of oxygen at baseline due to his pulmonary fibrosis but he is now requiring up to 10 L of oxygen to maintain an oxygen saturation above 88%. His x-ray does reveal bilateral infiltrates concerning for edema or possible pneumonia. There is no prior imaging to compare to so it is unclear if this is just related to his pulmonary fibrosis or not. We initially treated him empirically with azithromycin and ceftriaxone for possible community-acquired pneumonia. He also was given Solu-Medrol. PLAN: In the ICU he continues to need high flow oxygen. I transitioned him to BiPAP because the high flow oxygen was not reaching the goal of maintaining an O2 sat of at least 88%. Every time he talks, rolls over in bed, coughs, he desaturates to the 70s.He is a DNR. As such no intubation. Please see discussion for pulmonary interstitial fibrosis with his sort line worker, Dr. Renetta Weber. She is with [facility] and her offices are in [place]. (2) Pulmonary interstitial fibrosis Conclusion/Plan: I spoke to Dr. Renetta Weber, who is with [facility] with offices in [place] in [place]. Her number is [phone]. She says that she is only met the patient once. That was in January of this year. At that time he was very stable. On CellCept and declining steroids. He was on [address] and pulmonary function studies showed MANAGER TESTING without change from 2018. So what I am describing to her today shows a severe, rapid deterioration. She is asking me to focus on steroids and antibiotics. She also wants me to repeat the CT of his chest. If he survives this, he may be a candidate for other treatments such as Rituxan, steroids. Plan: Spiral CT Change antibiotics to Zosyn and continue azithromycin. Discontinue Rocephin. Palliative care consultation discussed with EMMIE Solano. She may be able to see him on August 14 (3) Rheumatoid arthritis Conclusion/Plan: This is reportedly the cause of his pulmonary fibrosis. We will hold his home CellCept for the time being.
[2020-08-11] MEDS ORDERED: IOVERSOL 320 100 ML VIAL IVP ONE (13:30)
[2020-08-11] MEDS: PIPERACILLIN/TAZOBACTAM 3.375 GM in SODIUM CHLORIDE 0.9% MINIBAG 100 ML IV SCH (16:50)
[2020-08-11] MEDS: methylPREDNISolone SUCCINATE 40 MG/ML VIAL IVP SCH ×2 (20:10→22:01)
[2020-08-11] MEDS ORDERED: cefTRIAXone 2 GM in SODIUM CHLORIDE 0.9% MINIBAG 100 ML IV SCH (21:00)
[2020-08-11] MEDS: AZITHROMYCIN INJ 500 MG in SODIUM CHLORIDE 0.9% 250 ML IV SCH (22:01)
[2020-08-12] MEDS: PIPERACILLIN/TAZOBACTAM 3.375 GM in SODIUM CHLORIDE 0.9% MINIBAG 100 ML IV SCH ×3 (00:19→16:51)
[2020-08-12] MEDS: MORPHINE 2 MG/ML CARPUJECT IVP PRN ×12 (00:20→23:16)
[2020-08-12] MEDS: SODIUM CHLORIDE FLUSH 0.9% 10 ML SYRINGE IVP SCH ×3 (00:20→19:12)
[2020-08-12 05:06] LABS: BASOPHILS % (AUTO) 0.1 %; HGB - HEMOGLOBIN 12.4 g/dL (14.0-18.0); LYMPHOCYTES # (AUTO) 0.4 10^3/uL (1.5-3.5); LYMPHOCYTES % (AUTO) 1.7 %; MEAN CORPUSCULAR HEMOGLOBIN 28.8 pg (27.0-31.0); MEAN PLATELET VOLUME 11.2 fL (7.4-11.4); MONOCYTES # (AUTO) 1.3 10^3/uL (0.0-1.0); MONOCYTES % (AUTO) 5.7 %; NEUTROPHILS # (AUTO) 20.6 10^3/uL (1.5-6.6); NEUTROPHILS % (AUTO) 91.9 %; PLT - PLATELET COUNT 178 10^3/uL (130-450); RED BLOOD COUNT 4.31 10^6/uL (4.70-6.10); WHITE BLOOD COUNT 22.4 x10^3/uL (4.8-10.8)
[2020-08-12 05:10] LABS: VBG PH 7.348 (7.31-7.41)
[2020-08-12 05:16] LABS: CREATININE 0.8 mg/dL (0.6-1.2); MAGNESIUM 2.2 mg/dL (1.7-2.8); PHOSPHORUS 3.4 mg/dL (2.5-4.6)
[2020-08-12] MEDS: methylPREDNISolone SUCCINATE 40 MG/ML VIAL IVP SCH ×3 (06:32→22:03)
--- NOTE | 2020-08-12 08:34 | PROVIDER PROGRESS NOTE ---
Subjective - Prog Note Date Prog Note Date: 08/12/20 Prog Note Time: 08:32 - Subjective Pt reports feeling: Worse Subjective: He is struggling to breathe. He is not talking very much anymore. Has not been able to sleep all night long because of coughing, shortness of breath. Has been on BiPAP and barely able to saturate high 80s and low 90s on 100% FiO2. Unable to do the CT scan of the chest because of tenuous respiratory status. I did change his antibiotics yesterday to Zosyn and azithromycin.Sputum Gram smear shows gram-negative bacilli and gram-positive cocci in pairs and chains Current Medications - Current Medications Current Medications: Active Medications Acetaminophen (Acetaminophen 325 Mg Tablet) 650 mg PO Q4HR PRN PRN Reason: Pain 1 to 4 Last Admin: 08/11/20 00:46 Dose: 650 mg Documented by: Albuterol/Ipratropium (Ipratropium/Albuterol 3 Ml Neb) 3 ml INH Q4HR PRN PRN Reason: Wheezing Last Admin: 08/11/20 19:58 Dose: 3 ml Documented by: Benzonatate (Benzonatate 100 Mg Capsule) 100 mg PO TID PRN PRN Reason: Cough Last Admin: 08/11/20 00:47 Dose: 100 mg Documented by: Cholecalciferol (Cholecalciferol 25 Mcg Tablet) 25 mcg PO DAILY [facility] Last Admin: 08/11/20 08:19 Dose: 25 mcg Documented by: Enoxaparin Sodium (Enoxaparin 40 Mg/0.4 Ml Syringe) 40 mg SUBQ DAILY [facility] Last Admin: 08/11/20 08:26 Dose: 40 mg Documented by: Guaifenesin (Guaifenesin/Dextromethorphan 10 Ml Udc) 10 ml PO BID [facility] Last Admin: 08/11/20 20:11 Dose: 10 ml Documented by: Guaifenesin (Guaifenesin 600 Mg Tablet) 600 mg PO BID [facility] Last Admin: 08/11/20 20:11 Dose: 600 mg Documented by: Guaifenesin/Codeine Phosphate (Guaifenesin/Codeine 5 Ml Udc) 5 ml PO Q6HR PRN PRN Reason: Cough Last Admin: 08/11/20 06:28 Dose: 5 ml Documented by: Azithromycin 500 mg/ Sodium (Chloride) 250 mls @ 250 mls/hr IV 2200 [facility] Stop: 08/12/20 22:59 Last Infusion: 08/11/20 23:33 Dose: Infused Documented by: Piperacillin Sod/Tazobactam (Sod 3.375 gm/ Sodium Chloride) 100 mls @ 25 mls/hr IV Q8H [facility] Last Infusion: 08/12/20 04:40 Dose: Infused Documented by: Methylprednisolone (Methylprednisolone Succinate 40 Mg/Ml Vial) 40 mg IVP TID [facility] Last Admin: 08/12/20 06:32 Dose: 40 mg Documented by: Morphine Sulfate (Morphine 2 Mg/Ml Carpuject) 2 mg IVP Q2HR PRN PRN Reason: Dyspnea Multivitamins (Multivitamin Tablet) 1 tab PO DAILY [facility] Last Admin: 08/11/20 08:21 Dose: 1 tab Documented by: Pantoprazole Sodium (Pantoprazole 40 Mg Tablet) 40 mg PO BID [facility] Last Admin: 08/11/20 20:11 Dose: 40 mg Documented by: Sodium Chloride (Sodium Chloride Flush 0.9% 10 Ml Syringe) 10 ml IVP PRN PRN PRN Reason: NEEDED PER PROVIDER ORDERS Sodium Chloride (Sodium Chloride Flush 0.9% 10 Ml Syringe) 10 ml IVP 0100,0900,1700 [facility] Last Admin: 08/12/20 00:20 Dose: 10 ml Documented by: Omeprazole Magnesium 20 mg PO DAILY 08/10/20 Sulfamethox/Trimeth 800/160 [Bactrim Ds] 1 tab PO MOWEFR 08/10/20 Mycophenolate Mofetil 1,000 mg PO BID 08/11/20 Objective - Vital Signs/Intake & Output Reviewed Vital Signs: Yes Vital Signs: Vital Signs Temp Pulse Pulse Resp BP Pulse Ox 08/12/20 08:00 76 32 H 140/82 H 91 L 08/12/20 07:00 88 28 H 132/77 H 91 L 08/12/20 06:00 78 34 H 133/77 H 92 08/12/20 05:36 37 C 71 32 H 94 08/12/20 05:00 71 32 H 129/68 94 08/12/20 04:51 82 Intake & Output: Intake & Output 08/09/20 08/10/20 08/11/20 08/12/20 23:59 23:59 23:59 23:59 Intake Total 1550 100 Output Total 1239 535 Balance 311 -435 - Objective General Appearance: positive: Alert, Moderate distress, Other (Much more muted affect. Yesterday he was cheerful, talking way too much and causing himself to desaturate. Today he is almost silent. Single monosyllabic answers as he struggles to breathe. Tachypneic, tachycardic with starting to use abdominal muscles) Eyes Bilateral: positive: PERRL, EOMI ENT: positive: Dry mucous membranes Neck: positive: No JVD. negative: Stiff neck Respiratory: positive: Rales (Bilateral lower and mid lungs), Rhonchi (Faint left lower lobe), Other (Tachypneic) Cardiovascular: positive: Regular rate & rhythm, Tachycardia, Systolic murmur. negative: Gallop/S4, Friction rub Abdomen: positive: Non-tender, No organomegaly, Nml bowel sounds, No distention Skin: positive: Warm, Dry Extremities: positive: Full ROM, No pedal edema Neurologic/Psychiatric: positive: Oriented x3, CN's nml (2-12), Motor nml - Lab Results Fish Bones: 08/12/20 04:48 08/12/20 04:48 Other Labs: Lab Results x24hrs 08/12/20 08/12/20 08/12/20 Range/Units 04:48 04:48 04:48 WBC 22.4 H (4.8-10.8) x10^3/uL RBC 4.31 L (4.70-6.10) 10^6/uL Hgb 12.4 L (14.0-18.0) g/dL Hct 38.8 L (42.0-52.0) % MCV 90.0 (80.0-94.0) fL MCH 28.8 (27.0-31.0) pg MCHC 32.0 (32.0-36.0) g/dL RDW 13.0 (12.0-15.0) % Plt Count 178 (130-450) 10^3/uL MPV 11.2 (7.4-11.4) fL Neut # (Auto) 20.6 H (1.5-6.6) 10^3/uL Lymph # (Auto) 0.4 L (1.5-3.5) 10^3/uL [place] # (Auto) 1.3 H (0.0-1.0) 10^3/uL Eos # (Auto) 0.0 (0.0-0.7) 10^3/uL Baso # (Auto) 0.0 (0.0-0.1) 10^3/uL Absolute Nucleated RBC 0.00 x10^3/uL Nucleated RBC % 0.0 /100WBC Bld Gas Analysis Time Sample Site ABG pH (7.35-7.45) ABG pCO2 (34-45) mmHg ABG pO2 (80-100) mmHg ABG HCO3 (22.0-26.0) mmol/L ABG Total CO2 (21.0-29.0) MMOL/L ABG O2 Saturation (94-98) % ABG Oximetry Spot Check % ABG Base Excess (-2.0-3.0) mmol/L Tye Test VBG pH 7.348 (7.31-7.41) Ionized Calcium 1.17 (1.15-1.33) mmol/L Respiration Rate b/min O2 Delivery Device Vent Mode FiO2 Tidal Volume mL Pressure Support Vent cmH2O EPAP cmH2O IPAP cmH2O Sodium 139 (135-145) mmol/L Potassium 4.3 (3.5-5.0) mmol/L Chloride 105 (101-111) mmol/L Carbon Dioxide 25 (21-32) mmol/L Anion Gap 9.0 (6-13) BUN 16 (6-20) mg/dL Creatinine 0.8 (0.6-1.2) mg/dL Estimated GFR (MDRD) 95 (>89) Glucose 178 H (70-100) mg/dL Calcium 9.0 (8.5-10.3) mg/dL Phosphorus 3.4 (2.5-4.6) mg/dL Magnesium 2.2 (1.7-2.8) mg/dL 08/11/20 Range/Units 10:03 WBC (4.8-10.8) x10^3/uL RBC (4.70-6.10) 10^6/uL Hgb (14.0-18.0) g/dL Hct (42.0-52.0) % MCV (80.0-94.0) fL MCH (27.0-31.0) pg MCHC (32.0-36.0) g/dL RDW (12.0-15.0) % Plt Count (130-450) 10^3/uL MPV (7.4-11.4) fL Neut # (Auto) (1.5-6.6) 10^3/uL Lymph # (Auto) (1.5-3.5) 10^3/uL [place] # (Auto) (0.0-1.0) 10^3/uL Eos # (Auto) (0.0-0.7) 10^3/uL Baso # (Auto) (0.0-0.1) 10^3/uL Absolute Nucleated RBC x10^3/uL Nucleated RBC % /100WBC Bld Gas Analysis Time 1004 Sample Site RIGHT RADIAL ABG pH 7.37 (7.35-7.45) ABG pCO2 43 (34-45) mmHg ABG pO2 56 L (80-100) mmHg ABG HCO3 23.8 (22.0-26.0) mmol/L ABG Total CO2 25.1 (21.0-29.0) MMOL/L ABG O2 Saturation 87 L* (94-98) % ABG Oximetry Spot Check 92 % ABG Base Excess -1.6 (-2.0-3.0) mmol/L Tye Test POSITIVE VBG pH (7.31-7.41) Ionized Calcium (1.15-1.33) mmol/L Respiration Rate 33 b/min O2 Delivery Device BiPAP Vent Mode SYNCHRONOUS/TIMES FiO2 50.00 Tidal Volume 871 mL Pressure Support Vent 4 cmH2O EPAP 6 cmH2O IPAP 10 cmH2O Sodium (135-145) mmol/L Potassium (3.5-5.0) mmol/L Chloride (101-111) mmol/L Carbon Dioxide (21-32) mmol/L Anion Gap (6-13) BUN (6-20) mg/dL Creatinine (0.6-1.2) mg/dL Estimated GFR (MDRD) (>89) Glucose (70-100) mg/dL Calcium (8.5-10.3) mg/dL Phosphorus (2.5-4.6) mg/dL Magnesium (1.7-2.8) mg/dL Assessment/Plan - Problem List (1) Acute on chronic respiratory failure with hypoxia Impression: He is normally on 4 to 5 L of oxygen at baseline due to his pulmonary fibrosis (pulmonlogist states he was on 2liters January 2020) but he is now requiring up to 100% Fi02 of oxygen to maintain an oxygen saturation above 88%. His x-ray does reveal bilateral infiltrates concerning for edema or possible pneumonia. There is no prior imaging to compare to so it is unclear if this is just related to his pulmonary fibrosis or not. We initially treated him empirically with azithromycin and ceftriaxone for possible community-acquired pneumonia. He also was given Solu-Medrol. In the ICU he continued to need high flow oxygen. I transitioned him to BiPAP 08/11 because the high flow oxygen was not reaching the goal of maintaining an O2 sat of at least 88%. Every time he spoke, rolled over in bed, coughed, he de saturated to the 70s. He is a DNR. As such no intubation. I spoke to Dr. Renetta Weber. She is his change management specialist with [facility] and her offices are in [place]. Plan: Continue to hold course with antibiotics, steroids and hope he can recover. He is sliding downhill ever so slowly. He is a DNR. I have increased his morphine from 1 mg every 2 hours to 2 mg every 2 hours to see if that will help with respiratory distress and work of breathing (2) Pulmonary interstitial fibrosis Conclusion/Plan: I spoke to Dr. Renetta Weber 08/11/20 who is with [facility] with offices in [place] in [place]. Her number is [phone]. She says that she is only met the patient once. That was in January of this year. At that time he was very stable. On CellCept and declining steroids. He was on [address] and pulmonary function studies showed IPF without change from 2018. So what I am described to her shows a severe, rapid deterioration. She is asking me to focus on steroids and antibiotics. She also wanted me to repeat the CT of his chest. If he survives this, he may be a candidate for other treatments such as Rituxan, steroids. I did order a CT yesterday. But his pulmonary status is so tenuous, I am holding off getting the CT until he is stable.Preliminary sputum shows him to be gram-negative bacilli and gram-positive cocci. Theoretically the Zosyn and azithromycin should be covering that. Plan: Zosyn day #2 Azithromycin day #3 High-dose steroids continue Palliative care consultation discussed with EMMIE Solano. She may be able to see him on August 14 (3) Rheumatoid arthritis Conclusion/Plan: This is reportedly the cause of his pulmonary fibrosis. We will hold his home CellCept for the time being. (4) Hyperglycemia due to steroids Plan: Sliding scale coverage
[2020-08-12] MEDS: ENOXAPARIN 40 MG/0.4 ML SYRINGE SUBQ SCH (08:37)
[2020-08-12] MEDS: CHOLECALCIFEROL 25 MCG TABLET PO SCH (10:08)
[2020-08-12] MEDS: MULTIVITAMIN TABLET PO SCH (10:09)
[2020-08-12] MEDS: guaiFENesin/DEXTROMETHORPHAN 10 ML UDC PO SCH ×2 (10:09→20:25)
[2020-08-12] MEDS: PANTOPRAZOLE 40 MG TABLET PO SCH (10:09)
[2020-08-12] MEDS: guaiFENesin 600 MG TABLET PO SCH ×2 (10:09→20:25)
[2020-08-12] MEDS ORDERED: PANTOPRAZOLE 80 MG in SODIUM CHLORIDE 0.9% 100ML 100 ML IV SCH (10:16)
[2020-08-12] MEDS ORDERED: PANTOPRAZOLE 40 MG VIAL IVP SCH (21:00)
[2020-08-12] MEDS: AZITHROMYCIN INJ 500 MG in SODIUM CHLORIDE 0.9% 250 ML IV SCH (22:03)
[2020-08-12] MEDS ORDERED: ZINC OXIDE 20% OINT 30 GM TUBE TOP PRN (23:13)
[2020-08-12] MEDS ORDERED: BISACODYL 10 MG SUPP PR ONE (23:52)
[2020-08-13] MEDS: MORPHINE 2 MG/ML CARPUJECT IVP PRN (01:08)
[2020-08-13] MEDS: SODIUM CHLORIDE FLUSH 0.9% 10 ML SYRINGE IVP SCH (01:08)
[2020-08-13] MEDS: PIPERACILLIN/TAZOBACTAM 3.375 GM in SODIUM CHLORIDE 0.9% MINIBAG 100 ML IV SCH (01:08)
[2020-08-13 02:06] VITALS: BP 118/82
--- NOTE | 2020-08-13 02:52 | DISCHARGE SUMMARY ---
Discharge Summary Admit Date: 08/10/20 Discharge Date: 08/13/20 Discharging Provider: Campbell Elam Primary Care Provider: Forrest Teague Code Status: Do Not Attempt Resuscitation Discharge Disposition: 20 - DIAGNOSES Admission Diagnoses: Acute on chronic respiratory failure with hypoxia Pulmonary interstitial fibrosis Rheumatoid arthritis Discharge Diagnoses with Status of Each Condition: Acute on chronic respiratory failure with hypoxia Pulmonary initial fibrosis Community acquired pneumonia Rheumatoid arthritis Hyperglycemia due to steroid - HPI History of Present Illness: This is a very pleasant 74-year-old male with a past medical history significant for pulmonary fibrosis believed to be secondary to rheumatoid arthritis who is on 4-5 L of oxygen at baseline presents today due to ongoing hypoxia at home. He states that he has had progressive dyspnea with minimal exertion over the past 4 weeks. He has a chronic productive cough of brown sputum which is unchanged. He states that with minimal exertion he will desaturate into the 70s and it will normally take him about 15 minutes to return to 88 to 92%. He states that today he desaturated into the high 50s and despite increasing his oxygen to 7 8 L, he remained quite hypoxic over next few hours. He states he was finally able to decrease his oxygen to 6 L of oxygen to maintain a saturation above 88%. He states his concentrator only goes up to 5 L of oxygen and when he contacted the company that provides his oxygen, he was told that he will need a new prescription and so he came to the emergency department. He reports no fevers or chills at home. Denies any lower extremity edema. He states he does not feel short of breath at rest but he does with minimal exertion. He states his he has felt for the past 4 weeks. He understands that there is progressive decline associated pulmonary fibrosis. He is actually scheduled to see his groundwater programs director, Dr. Renetta Weber tomorrow at [facility]. He denies ever being hospitalized due to pulmonary fibrosis. He does take Bactrim 3 times a week as he is on CellCept for the rheumatoid arthritis. He is also on omeprazole. He reports no chest pressure while he does have some pain when he has a coughing fit and dry heaves. In the emergency department, he was found to be afebrile with temperature of 36.5 C. His heart rate was in the 80s. Blood pressure is 150s over 71. He was tachypneic with a respiratory in the mid 20s to 30. He was initially saturating mid 90s on 5 L of oxygen via nasal cannula but he desaturated and required to be placed on a nonrebreather at 15 L a minute. His oxygen saturation did improve to 100% with this. Chest x-ray was obtained which was concerning for either pulmonary edema or bilateral infiltrates. Given his desaturation, medicine was consulted for admission. I did discuss goals of care with the patient and he would like to be a DNR. He has made it very clear that he does not want mechanical ventilation no matter what. He states that if he were to decline from a respiratory standpoint, he would option for comfort measures. - HOSPITAL COURSE Hospital Course: He was admitted to the intensive care unit for acute on chronic respiratory failure with hypoxia due to possible community-acquired pneumonia and likely exacerbation of his pulmonary fibrosis. He was started empirically with azithromycin and ceftriaxone IV. He was given a dose of Solu-Medrol 125 mg IV initially given the concern for his hypoxia to be related to his pulmonary fibrosis. He was initially on 10 L of oxygen via nasal cannula but later required heated high flow at an FiO2 of 60% at 40 L a minute. This was just to maintain an oxygen saturation greater than 88%. Despite this, he remained hypoxic and would desaturate with minimal movement, talking, coughing episodes. He was then transitioned to BiPAP. Despite being on BiPAP with an FiO2 of 70%, his oxygen saturations remained in the high 80s to low 90s. His groundwater programs director at [facility] was contacted who recommended broadening antibiotics to Zosyn and continue the azithromycin. They recommended continuing him on steroids and so he remained on Solu-Medrol IV. The plan was to obtain a CT of the chest for further evaluation but given his significant hypoxia, it was felt that he was not stable to obtain further imaging given he would desaturate with minimal movement. Over next 24 hours, his oxygen requirements increased and he remained on BiPAP with an FiO2 of 100%. This was with an IPAP of 10 and EPAP of 6 cm of water. He was checked for COVID-19 and this was negative. His troponins were flat during his hospitalization. His BNP was in the low 200s and was felt that he did not have heart failure. His sputum culture did grow gram-negative bacilli and gram-positive cocci in pairs and chains. Goals of care has been discussed with the patient and he had made it quite clear that he did not want mechanical ventilation or CPR. The day prior to his passing, the daytime hospitalist did speak with him and his and the patient had made it clear that his goal was to try and get through this acute episode of his illness. Shereen n was to either transition to palliative care and hospice or hospice directly depending on how he progressed. Fortunately, on the metalsmith of the , he progressively became hypoxic with oxygen saturation in the 80s and 70s. Despite being on BiPAP at FiO2 100%. At 2:43 AM, he went into PEA followed by ventricular fibrillation at 2:45 AM. Given he was a DNR, ACLS was not initiated. I did contact his , Gray and she was notified. All of her questions were answered. - ALLERGIES Allergies/Adverse Reactions: Allergies Allergy/AdvReac Type Severity Reaction Status Date / Time No Known Drug Allergies Allergy Verified 08/10/20 17:40 - MEDICATIONS Home Medications: Ambulatory Orders Medication Instructions Recorded Confirmed Omeprazole Magnesium 20 mg PO DAILY 08/10/20 08/11/20 Sulfamethox/Trimeth 800/160 1 tab PO MOWEFR 08/10/20 08/11/20 [Bactrim Ds] Mycophenolate Mofetil 1,000 mg PO BID 08/11/20 08/11/20 - PHYSICAL EXAM AT DISCHARGE Eyes Bilateral: positive: Other (Pupils fixed and dilated) Respiratory: positive: Other (No spontaneous respirations) Cardiovascular: positive: Other (No heart sounds present.) Peripheral Pulses: positive: 0 - LABS Result Diagrams: 08/12/20 04:48 08/12/20 04:48 - DIAGNOSTIC IMAGING Diagnostic Imaging Results: Final report reviewed
--- NOTE | 2020-08-13 02:52 | Discharge Plan ---
Discharge Plan Problem Reviewed?: Yes Disposition: 20 No Smoking: If you smoke, Please STOP! Call for help. Follow-up with: Forrest Teague DO [Primary Care Provider] -
[2020-08-13] MEDS ORDERED: SENNA 8.6 MG TABLET PO SCH (09:00)
[2020-08-13] MEDS ORDERED: polyethylene glycoL 3350 17 GM PACKET PO SCH (09:00)
== END 2020-08-13 02:43 | disposition expired | DRG 189 ==
LOC: EDUNIT# → ED 17:06 → MS2 20:56 → ICU 22:33 → OBSVTOIN 22:33
PROVIDERS: ADMIT Internal Medicine; ATTEND Internal Medicine
DX: J96.21 Acute and chronic respiratory failure with hypoxia (principal); M05.10 Rheumatoid lung disease with rheumatoid arthritis of unspecified site; J96.20 Acute and chronic respiratory failure, unspecified whether with hypoxia or hypercapnia; J18.9 Pneumonia, unspecified organism; J84.178 Other interstitial pulmonary diseases with fibrosis in diseases classified elsewhere; R73.9 Hyperglycemia, unspecified; T38.0X5A Adverse effect of glucocorticoids and synthetic analogues, initial encounter; Y92.230 Patient room in hospital as the place of occurrence of the external cause; Z20.828 Contact with and (suspected) exposure to other viral communicable diseases; Z66 Do not resuscitate; Z51.5 Encounter for palliative care; Z79.899 Other long term (current) drug therapy; Z79.2 Long term (current) use of antibiotics; Z99.81 Dependence on supplemental oxygen
CPT/HCPCS: 36415; 36600; 71045; 80048; 80053; 82330; 82803; 83690; 83735; 83880; 84100; 84484; 85025; 85610; 87070; 87150; 87205; 87631; 93005; 94640; 94660; 99284; 99285; A9270; J1650; 0202U